=== PATIENT | female | born 1985 | race Caucasian/White ===

== ENCOUNTER → 2016-07-21 | Outpatient (CLI) | payer BC ==
--- NOTE | 2016-07-21 09:29 | DI ---
OBSTETRICAL ULTRASOUND, 07/21/2016 8:15 AM: Clinical History: Verify dates. Previous Exam: None at this facility for this . LMP: 05/10/2016. There is a single live IUP currently in unstable position. Amnionic fluid content is normal. The plac enta is anterior corpus and Grade 0. heart rate is 163 beats/minute and regular. The yolk sac i s visualized. The right ovary is normal. The left ovary is not visualized. CRL measurement is 42 mm. This measurement corresponds to an EGA value of 11 weeks 1 day The US EDC is 02/08/2017. EDC by LMP i s 02/14/2017. Readin. Single live fetus with unstable presentation and normal amniotic fluid content. Placenta is anter ior corpus and grade 0. 2. The composite EGA is 11 weeks 1 day with an ultrasound EDC of 02/08/2017. This is in contrast to the EDC of 02/14/2017, that is based on the LMP given as 05/10/2016.
== END ==
LOC: US 08:11
PROVIDERS: ATTEND Family Medicine
DX: Z36 Encounter for antenatal screening of mother (principal)
CPT/HCPCS: 76801; 76817

== ENCOUNTER → 2016-08-12 | Outpatient (CLI) | payer BC ==
[2016-08-12 16:12] LABS: BASOPHILS # (AUTO) 0.09 10*3/UL; EOSINOPHILS # (AUTO) 0.08 10*3/UL; EOSINOPHILS % (AUTO) 0.9 % (0-8); HEMATOCRIT 32.4 % (37.0-47.0); HEMOGLOBIN 11.3 g/dL (12.0-16.0); LYMPHOCYTES # (AUTO) 2.75 10*3/uL; MEAN CORPUSCULAR HGB CONC 34.9 g/dL (33-37); MEAN PLATELET VOLUME 9.6 FL (7.4-12.2); MONOCYTES % (AUTO) 8.1 % (5-15); NEUTROPHILS # (AUTO) 4.98 10*3/UL; NEUTROPHILS % (AUTO) 57.6 % (50-80); RED BLOOD COUNT 3.64 10^6/uL (4.20-5.40)
[2016-08-12 16:14] LABS: PLATELET MORPHOLOGY COMMENT NORMAL MORPHOLOGY (NORM); RBC MORPHOLOGY COMMENT NORMAL MORPHOLOGY (NORM); WBC MORPHOLOGY COMMENT NORMAL MORPHOLOGY (NORM)
[2016-08-12 16:31] LABS: HIV ANTIBODY NEGATIVE (N); HIV-1 P24 ANTIGEN NEGATIVE (N)
[2016-08-14 14:01] LABS: HEP B SURFACE AG Negative (Negative)
== END ==
LOC: MOB LAB 13:29
PROVIDERS: ATTEND Family Medicine
DX: Z36 Encounter for antenatal screening of mother (principal); Z3A.14 14 weeks gestation of pregnancy
CPT/HCPCS: 36415; 80081; 86900; 86901; 87088

== ENCOUNTER → 2016-09-25 | Outpatient (CLI) | payer BC ==
--- NOTE | 2016-09-25 11:47 | DI ---
US OB GTE 14 WEEKS,09/25/2016 9:08 AM: Clinical History: No anatomic survey. Previous Exam: None at this facility. Findings: Multiple grayscale and color Doppler sonographic images are obtained through the pelvis, and demonstr ate a single live intrauterine gestation in vertex presentation. Amniotic fluid level is subjectively normal. There is normal motion identified. Detected Doppler heart tones measure 128beats per minute. anatomy is within normal limits. Estimated gestational age was determined by a composite of biparietal diameter, head circumference, a bdominal circumference and femur length yielding an estimated gestational age by ultrasound of 21 wee ks zero days. Estimated weight is 404 g (78th percentile) Patient complained of a painful area in the region of the left pubic area. There was some vasculature noted in the area, but no definite abnormality. These likely represent normal pelvic vasculature. Impression: Single live intrauterine gestation with size equal to dates. Normal anatomic survey.
== END ==
LOC: US 09:05
PROVIDERS: ATTEND Family Medicine
DX: Z36 Encounter for antenatal screening of mother (principal); Z3A.20 20 weeks gestation of pregnancy
CPT/HCPCS: 76805

== ENCOUNTER 2017-02-02 12:29 | Inpatient (IN) ==
[2017-02-02] MEDS ORDERED: NORMAL SALINE 10 ML SYRINGE FLUSH IVP PRN ×3 (12:32→23:04)
[2017-02-02] MEDS ORDERED: ONDANSETRON 4 MG/2 ML VIAL IVP PRN ×2 (13:13→23:04)
[2017-02-02] MEDS ORDERED: CefOXitin Inj 2 GM in Sodium Chloride 0.9% 100 ML IV PRN (13:13)
[2017-02-02] MEDS ORDERED: Nalbuphine Inj 20 MG/ML Ampule IVP PRN ×2 (13:13→23:04)
[2017-02-02] MEDS ORDERED: TERBUTALINE SULFATE 1 MG/1 ML SDV SUBCUT PRN (13:13)
[2017-02-02] MEDS ORDERED: Famotidine Inj 20 MG in Normal Saline Flush 10 ML IVP PRN ×4 (13:13)
[2017-02-02] MEDS ORDERED: Phenylephrine Inj 50 MCG in Normal Saline Flush 0.5 ML IVP PRN (13:13)
[2017-02-02] MEDS ORDERED: diphenhydrAMINE 50 MG/1 ML VIAL IVP PRN ×2 (13:13→23:04)
[2017-02-02] MEDS ORDERED: CITRIC ACID/SODIUM CITRATE 30 ML CUP PO PRN (13:13)
[2017-02-02] MEDS ORDERED: METHYLERGONOVINE MALEATE 0.2 MG/1 ML VIAL IM PRN (13:13)
[2017-02-02] MEDS ORDERED: OXYTOCIN 10 UNIT/1 ML IM PRN (13:13)
[2017-02-02] MEDS ORDERED: CALCIUM CARBONATE 500 MG (TUMS) CHEWABLE TABLET PO PRN ×2 (13:13→23:04)
[2017-02-02] MEDS ORDERED: Metoclopramide Inj 10 MG/2 ML VIAL IV PRN (13:13)
[2017-02-02] MEDS ORDERED: BUTORPHANOL TARTRATE 2 MG/1 ML VIAL IVP PRN (13:13)
[2017-02-02] MEDS ORDERED: Naloxone Inj 0.01 MG in Normal Saline Flush 1 ML IVP PRN (13:13)
[2017-02-02] MEDS ORDERED: LIDOCAINE W/ SODIUM BICARB 0.5 ML SYR SUBD PRN (13:13)
[2017-02-02] MEDS ORDERED: MISOPROSTOL 200 MCG TABLET RECTAL PRN (13:13)
[2017-02-02] MEDS ORDERED: ePHEDrine Inj 5 MG in Normal Saline Flush 1 ML IVP PRN (13:13)
[2017-02-02] MEDS ORDERED: NALOXONE 0.4 MG/1 ML VIAL IVP PRN (13:13)
[2017-02-02] MEDS ORDERED: fentaNYL Inj 100 MCG/2 ML VIAL IV PRN (13:13)
[2017-02-02] MEDS ORDERED: Lidocaine 1% 10 MG/ML - 20 ML VIAL SUBCUT PRN (13:13)
[2017-02-02] MEDS ORDERED: Carboprost Inj 250 MCG/ML AMP IM PRN (13:13)
[2017-02-02] MEDS ORDERED: LIDOCAINE HCL 2 % 10 ML JELLY URO-JECT TOPICAL PRN ×2 (13:13→23:04)
[2017-02-02] MEDS ORDERED: Oxytocin 20 Units + LR 20 UNIT/1,000 ML BAG IV SCH ×2 (13:15→23:04)
[2017-02-02 14:25] LABS: Hematocrit [HCT] 40.5 % (37.0-47.0); MEAN CORPUSCULAR HEMOGLOBIN 33.4 PG (27-31); MEAN CORPUSCULAR HGB CONC 34.5 g/dL (33-37); MEAN CORPUSCULAR VOLUME 97 FL (81-99); MEAN PLATELET VOLUME 7.8 FL (7.4-12.2); RED BLOOD COUNT 4.19 10^6/uL (4.20-5.40)
[2017-02-02] MEDS: Lactated Ringers-OB Dept 1,000 ML PRIMARY IV SCH ×2 (14:32→20:16)
--- NOTE | 2017-02-02 18:08 | OB.PROGRES ---
Date and Time of Service: 02/02/17 @ 1800 (Pt also seen at 1345). Interval History: Pt is a 31 yo at 39 1/7 weeks by early u/s who presented this noon to labor and delivery after spontaneous rupture of membranes at home. She states that fluid was clear with a pink tinge. She has not felt a whole lot of contractions since SROM and wasn't really having any contractions on the monitor either. Baby has been moving normally. She has had an uncomplicated . Her GBS is negative. Objective - Cervical Exam Cervical Exam: 2-3/70/-2 per my exam at 1815. [place]: every 2-3 minutes, palpating moderate. Heart Rate: 135, moderate variability, + accels. Heart Rate Interpretation Category: Category I - Labs CBC and BMP: 02/02/17 14:05 - Vital Signs Last Taken Vital Signs: Vital Signs - Last Taken Temperature 97.8 F 02/02/17 13:00 Pulse Rate 68 02/02/17 13:00 Respiratory Rate 14 02/02/17 13:00 Pulse Ox 99 02/02/17 13:00 Assessment and Plan - Patient Problems (1) Term Current Visit: Yes Status: Acute Code(s): Z34.80 - Encounter for supervision of other normal , unspecified trimester (2) Spontaneous rupture of amniotic membranes Current Visit: Yes Status: Acute - Assessment / Plan Additional Assessment/Plan Details: -when pt was seen earlier, she was not having any contractions. Secondary to this, and because she has been ambulating around at home with no painful contractions, we discussed augmenting with pitocin to get her labor going. She agreed and so pitocin augmentation was started mid-afternoon. She is now having good cervical change. Her pitocin is currently at 10 mU. -GBS negative. -for pain control, pt is wishing to go natural but is having a lot of pain with the pitocin. She may opt for an epidural, for which anesthesia is aware. -expectant management.
[2017-02-02] MEDS ORDERED: Fent/Bupiv 2mcg/0.0625% Epid 250 ML ONE (19:57)
--- NOTE | 2017-02-02 20:21 | CRNA.PROCE ---
Central Neuraxis Block Placemt - - Type of Block: Epidural Reason for Block: Analgesia Moniters Used During Block: SPO2, NIBP Skin Prep Used: ChloroPrep Draped: Yes Skin Infiltration - Enter Amount Used in Comment Field: 1% Xylocaine (mL): Yes ( skinwheal) Spinal Needle Used: 25 [place] 80 mm Local Anesthetic - Enter Amount Used in Comment Field: 1.5 % Xylocaine with Epinephrine 1:200,000 (mL): Yes (5ml) Number of Centimeters Catheter Threaded: 4 Bioclusive Dressing Applied: Yes - - Additional Details: Pt chart reviewed, pt interviewed, R/B discussed and patient wishes to proceed with an epidural for trial of labor. Anesthesia Time - Other Weight: 91.172 kg Height: 5 ft 7 in Body Mass Index (BMI): 31.4
--- NOTE | 2017-02-02 20:22 | CRNA.PROGR ---
Anesthesia Time - - Start date: 02/02/17 End date: 02/02/17 - Procedure/Recovery Time Anesthesia : Time In: 19:55 - Other Weight: 91.172 kg Height: 5 ft 7 in Body Mass Index (BMI): 31.4 Physical Status: P2 Obstetrics: Planned vaginal delivery w/ neuraxial labor anesthesia/analog
--- NOTE | 2017-02-02 21:30 | OB.PROGRES ---
Date and Time of Service: 02/02/17 @ 2054 Interval History: Pt has had an epidural placed, but it seems to be working mostly on the right side. Currently tilted to the left. Feeling some pressure with contractions. Has changed her cervix quickly as her labor has progressed. Objective - Cervical Exam Cervical Exam: small amount of cervix on pt's left side/100/0 to +1 station per RN Marley. [place]: every 2-3 minutes; palpating hard. Pitocin was turned down per the nurse because the pt was changing so quickly and her epidural wasn't keeping up. Heart Rate: 110s, moderate variability, + accels. Heart Rate Interpretation Category: Category I - Labs CBC and BMP: 02/02/17 14:05 - Vital Signs Last Taken Vital Signs: Vital Signs - Last Taken Temperature 97.8 F 02/02/17 13:00 Pulse Rate 68 02/02/17 13:00 Respiratory Rate 14 02/02/17 13:00 Pulse Ox 99 02/02/17 13:00 Assessment and Plan - Patient Problems (1) Term Current Visit: Yes Status: Acute Code(s): Z34.80 - Encounter for supervision of other normal , unspecified trimester (2) Spontaneous rupture of amniotic membranes Current Visit: Yes Status: Acute - Assessment / Plan Additional Assessment/Plan Details: -pt has progressed quickly through labor, currently augmenting with just a small pitocin dose. -epidural is giving her partial relief. -GBS negative. -anticipate normal vaginal delivery.
[2017-02-02] MEDS ORDERED: Ondansetron ODT Tab 4 MG TAB PO PRN (23:04)
[2017-02-02] MEDS ORDERED: GLYCERIN/WITCH HAZEL 1 BOX TOPICAL PRN (23:04)
[2017-02-02] MEDS ORDERED: HYDROcodone-APAP 5 MG -325 MG TABLET PO PRN (23:04)
[2017-02-02] MEDS ORDERED: DIPH,PERTUSS,TET(ADACEL) VAC/PF 0.5 ML (Tdap) IM ONE (23:04)
[2017-02-02] MEDS ORDERED: ACETAMINOPHEN 325 MG TABLET PO PRN (23:04)
[2017-02-02] MEDS ORDERED: diphenhydrAMINE 25 MG CAPSULE PO PRN (23:04)
[2017-02-02] MEDS ORDERED: BENZOCAINE/MENTHOL SPRAY 56 GM BOTTLE TOPICAL PRN (23:04)
[2017-02-02] MEDS ORDERED: LANOLIN HPA 40 GM TUBE TOPICAL PRN (23:04)
--- NOTE | 2017-02-02 23:11 | OB.DEL.SUM ---
Delivery Note Delivery Summary: Pt is a 31 yo G2 now P2 at 39 1/7 weeks by early u/s who presented to labor and delivery with SROM at home with clear fluid at 0700 this morning. She presented to the hospital about 5 hours after rupture of membranes and was still not having any contractions to speak of. She was started on pitocin for augmentation around 1500 this afternoon. Once she got into a contraction pattern , she progressed quickly from 2-3/70/-2 at 1800 to complete at 2140. She began pushing a short time later. Baby was noted to be acynclitic and mom pushed on either side and then in the knee-chest position. In that position, baby was noted to have moved her head to a more normal presentation. Mom moved back to the semi-ontiveros's position, where she pushed several more times and delivered a viable female in the NAVID presentation. There was no shoulder dystocia and no nuchal cord. Baby had a lusty cry right after delivery. Her nose and mouth were suctioned with the bulb suction and she was placed on mom's chest. Cord clamping was delayed 45 seconds. Time of delivery was 2226. The placenta delivered spontaneously and intact with a 3 vessel cord at 2232. 20 mU of pitocin were infused. There was minimal lochia. The vagina and perineum were examined and no lacerations were noted. Apgars were 9 at 1 minute and 10 at 5 minutes. Baby weighed 7#4.7 oz and was 19 inches long. Both mom and baby tolerated delivery well and are in stable condition at this time. - Patient Problems (1) Term Current Visit: Yes Status: Acute Code(s): Z34.80 - Encounter for supervision of other normal , unspecified trimester (2) Spontaneous rupture of amniotic membranes Current Visit: Yes Status: Acute (3) Vaginal delivery Current Visit: Yes Status: Acute Code(s): O80 - Encounter for full-term uncomplicated delivery
[2017-02-02] MEDS: IBUPROFEN 800 MG TABLET PO PRN (23:15)
[2017-02-03 07:36] LABS: Hematocrit [HCT] 34.4 % (37.0-47.0); Hemoglobin [HGB] 11.5 g/dL (12.0-16.0); MEAN CORPUSCULAR HEMOGLOBIN 32.3 PG (27-31); MEAN CORPUSCULAR HGB CONC 33.4 g/dL (33-37); MEAN CORPUSCULAR VOLUME 97 FL (81-99); MEAN PLATELET VOLUME 7.7 FL (7.4-12.2); RED BLOOD COUNT 3.56 10^6/uL (4.20-5.40)
[2017-02-03 08:57] VITALS: RESP 14; TEMP 97.8; O2SAT 99
[2017-02-03] MEDS ORDERED: DOCUSATE 100 MG CAPSULE PO SCH (09:00)
[2017-02-03] MEDS ORDERED: Prenatal Multivitamin Tab 1 TAB TAB PO SCH (09:00)
--- NOTE | 2017-02-03 09:49 | CRNA.PROGR ---
Anesthesia Note - Progress Notes Anesthesia Progress Note: Post Labor Epidural Note Pt is sitting up in bed, resting comfortably. She states that there are no residual effects of the epidural, and she did get comfortable however she progressed fairly quickly after placement of the epidural. Current VS are Stable. Vital Signs (Last 8 hours) Temp Pulse Pulse Resp BP Pulse Ox 02/03/17 08:55 97.8 F 59 L 14 106/62 99 02/03/17 04:31 98.1 F 69 16 115/67 100
[2017-02-03] MEDS: IBUPROFEN 800 MG TABLET PO PRN (10:15)
[2017-02-03 15:27] VITALS: BP 112/65
--- NOTE | 2017-02-07 09:13 | OB.PROGRES ---
Subjective Post Op Day: 1 Pain Management: PO Cunningham Catheter: No Flatus: Yes Diet: Regular Feeding Method: Exculsively Ambulating: Yes Concerns / Additional Information: No complaints. Baby is feeding well. Mild to moderate lochia. Objective - General General Appearance: POSITIVE: No Acute Distress, Cooperative - Cardiovacular Cardiovascular Exam: POSITIVE: RRR, No Murmur Edema: +1 Pedal Edema Extremities: Negative Gisell's - Bilaterally - Respiratory Respiratory Exam: POSITIVE: Clear to Auscultation - Bilaterally, Breathing Non Labored - Abdomen Bowel Sounds: Present - Fundus/Lochia/Perineum Uterus Consistency: Firm Uterus Position: POSITIVE: At Umbilicus Assesstment / Plan (1) Term Status: Acute (2) Spontaneous rupture of amniotic membranes Status: Acute (3) Vaginal delivery Status: Acute Assessment / Plan: -rh positive. -rubella immune. -breast feeding going well. -pt requests d/c home today.
== END 2017-02-03 18:45 | disposition home or self-care (01) | DRG 775 ==
LOC: OBOP 12:29 → MED/SURG 13:13
PROVIDERS: ADMIT Family Medicine; ATTEND Family Medicine